=== PATIENT | female | born 1970 | race Caucasian/White ===

== ENCOUNTER 2020-09-16 12:27 | Inpatient (IN) | payer BC, OTHER, SELFPAY ==
[~2020-09-16] VITALS: Ht 170.2 cm; Wt 109.3 kg
--- NOTE | 2020-09-16 13:38 | NUR ---
PIV PLACED, LABS DRAWN. ERMD HAS BEEN AT BEDSIDE FOR ASSESSMENT. AWAITING ORDERS. PT CONNECTED TO ALL MONITORING. CALL LIGHT IN REACH. SPOUSE AT BEDSIDE.
[2020-09-16] MEDS ORDERED: KETOROLAC 30 MG/1 ML ONE (13:45)
--- NOTE | 2020-09-16 13:59 | NUR ---
[employer] DRIVER PER APR. 2 SETS BLOOD CX COLLECTED. XRAY AT BEDSIDE.
[2020-09-16] MEDS ORDERED: SODIUM CHLORIDE 0.9% 1,000 ML IV ONE (14:00)
[2020-09-16] MEDS ORDERED: SODIUM CHLORIDE FLUSH 10ML SYR IVF ONE (14:00)
[2020-09-16] MEDS ORDERED: KETOROLAC 30 MG/1 ML IVPush ONE (14:00)
[2020-09-16] MEDS ORDERED: SODIUM CHLORIDE 0.9% 1,000ML IVBOLUS ONE (14:00)
[2020-09-16 14:05] LABS: BASOPHILS % (AUTO) 0 % (0-1); EOSINOPHILS % (AUTO) 0 % (1-7); LYMPHOCYTES % (AUTO) 14 % (22-44); MEAN CORPUSCULAR HEMOGLOBIN 31.1 pg (27.0-34.8); MEAN PLATELET VOLUME 7.3 fL (7.4-10.4); MONOCYTES % (AUTO) 5 % (2-9); NEUTROPHILS % (AUTO) 81 % (42-75); PLATELET COUNT 178 x10^3/uL (130-400); RED BLOOD COUNT 4.49 x10^6/uL (3.82-5.3); RED CELL DISTRIBUTION WIDTH 12.2 % (9.6-15.2)
[2020-09-16 14:17] LABS: ALANINE AMINOTRANSFERASE 49 U/L (12-78); ALBUMIN 2.7 g/dL (3.4-5.0); ANION GAP 9 mmol/L (5-15); CALCIUM 8.4 mg/dL (8.5-10.1); CHLORIDE 102 mmol/L (98-107); CREATININE 1.12 mg/dL (0.55-1.02)
[2020-09-16 14:21] LABS: ALKALINE PHOSPHATASE 113 U/L (45-117); BILIRUBIN,TOTAL 0.5 mg/dL (0.2-1.0); TOTAL PROTEIN 7.2 g/dL (6.4-8.2); TROPONIN I < 0.015 ng/mL (0.000-0.045)
--- NOTE | 2020-09-16 15:28 | NUR ---
PT GOING TO CT
--- NOTE | 2020-09-16 15:28 | NUR ---
PT OXYGEN LEVEL DROPPED BACK TO 88% RA. PT PLACED BACK ON OXYGEN.
[2020-09-16] MEDS ORDERED: OMNIPAQUE 350 MG/ML, 75ML BOTTLE ONE (15:41)
--- NOTE | 2020-09-16 16:21 | NUR ---
PT OXYGEN LEVEL 83% RA AFTER AMBULATING TO RESTROOM AND BACK. PT PLACED BACK ON OXYGEN 2L VIA NC, WITH POSITIVE RESULTS.
--- NOTE | 2020-09-16 16:30 | NUR ---
REPORT GIVEN TO LO MARTINEZ. TRANSFER OF CARE.
--- NOTE | 2020-09-16 16:38 | NUR ---
PT RESTING ON GURNEY. MATTIEN. VSS ON 2L NC
[2020-09-16] MEDS ORDERED: morphine SULFATE 10 MG/ML, 1ML IVPush PRN (17:30)
[2020-09-16] MEDS ORDERED: DIPHENHYDRAMINE 25 MG CAPSULE PO PRN (17:30)
[2020-09-16] MEDS ORDERED: SODIUM CHLORIDE FLUSH 10ML SYR IVF PRN (17:30)
[2020-09-16] MEDS ORDERED: GUAIFENESIN/DM 200-20MG, 10ML UDC PO PRN (17:30)
[2020-09-16] MEDS ORDERED: ONDANSETRON ODT 4 MG PO PRN (17:30)
[2020-09-16] MEDS ORDERED: ONDANSETRON 2MG/ML, 2ML IVPush PRN (17:30)
[2020-09-16] MEDS ORDERED: ENALAPRILAT 1.25 MG/ML, 2ML IVPush PRN (17:30)
[2020-09-16] MEDS ORDERED: THIAMINE 100MG TABLET PO ONE (17:30)
[2020-09-16] MEDS ORDERED: HYDROcodone/APAP 5/325 TABLET PO PRN (17:30)
--- NOTE | 2020-09-16 18:26 | NUR ---
PT RESTING ON GURNEY. NADN. B[facility]LEY.
--- NOTE | 2020-09-16 18:45 | NUR ---
REPORT GIVEN TO MICHELLE COY. ALL QUESTIONS ANSWERED. AWAITING PT TRANSPORT.
[2020-09-16] MEDS ORDERED: THIAMINE 100MG TABLET ONE (18:49)
[2020-09-16] MEDS ORDERED: ENOXAPARIN 40 MG/0.4 ML ONE (18:49)
[2020-09-16] MEDS: CEFTRIAXONE 1,000 MG in DEXTROSE 5% 50 ML IVPB SCH (18:51)
[2020-09-16] MEDS: ENOXAPARIN 40 MG/0.4 ML SQ SCH (18:52)
--- NOTE | 2020-09-16 19:18 | NUR ---
PT RESTING ON GURNEY. NADN. B[facility]LEY.
[2020-09-16 19:40] VITALS: BP 133/83
[2020-09-16] MEDS: FAMOTIDINE 20 MG TABLET PO SCH (21:01)
[2020-09-16] MEDS: AZITHROMYCIN 500 MG in SODIUM CHLORIDE 0.9% 250 ML IV SCH (21:01)
[2020-09-16] MEDS: ACETAMINOPHEN 325 MG TABLET PO PRN (23:32)
[2020-09-17 00:03] VITALS: BP 113/73
[2020-09-17 00:08] LABS: CLOSTRIDIUM DIFFICILE ANTIGEN NEGATIVE; CLOSTRIDIUM DIFFICILE TOXIN NEGATIVE (Negative)
[2020-09-17 05:48] LABS: BASOPHILS % (AUTO) 0 % (0-1); EOSINOPHILS % (AUTO) 0 % (1-7); LYMPHOCYTES % (AUTO) 27 % (22-44); MEAN CORPUSCULAR HEMOGLOBIN 31.3 pg (27.0-34.8); MEAN CORPUSCULAR HGB CONC 35.2 g/dL (32.4-35.8); MONOCYTES % (AUTO) 6 % (2-9); NEUTROPHILS % (AUTO) 67 % (42-75); PLATELET COUNT 178 x10^3/uL (130-400); RED BLOOD COUNT 3.91 x10^6/uL (3.82-5.3); RED CELL DISTRIBUTION WIDTH 11.9 % (9.6-15.2)
[2020-09-17 05:56] LABS: ALBUMIN 2.2 g/dL (3.4-5.0); ANION GAP 7 mmol/L (5-15); CHLORIDE 106 mmol/L (98-107)
[2020-09-17 05:59] LABS: ALANINE AMINOTRANSFERASE 47 U/L (12-78); ALKALINE PHOSPHATASE 108 U/L (45-117); BILIRUBIN,TOTAL 0.5 mg/dL (0.2-1.0); CREATININE 0.68 mg/dL (0.55-1.02); TOTAL PROTEIN 6.3 g/dL (6.4-8.2)
[2020-09-17 07:18] VITALS: BP 90/59
[2020-09-17] MEDS: ASCORBIC ACID 500 MG TABLET PO SCH ×2 (08:41→16:29)
[2020-09-17] MEDS: ZINC SULFATE 220 MG CAPSULE PO SCH (08:42)
[2020-09-17] MEDS: FAMOTIDINE 20 MG TABLET PO SCH ×2 (08:42→20:53)
[2020-09-17] MEDS: DEXAMETHASONE 4 MG/ML, 1ML IVPush SCH (08:42)
[2020-09-17] MEDS: CHOLECALCIFEROL 1,000 UNIT TABLET PO SCH (08:42)
[2020-09-17 12:47] VITALS: BP 125/84
[2020-09-17] MEDS ORDERED: REMDESIVIR 200 MG in SODIUM CHLORIDE 0.9% 250 ML IVPB ONE (15:30)
[2020-09-17] MEDS: ENOXAPARIN 40 MG/0.4 ML SQ SCH (18:44)
[2020-09-17] MEDS: CEFTRIAXONE 1,000 MG in DEXTROSE 5% 50 ML IVPB SCH (18:44)
[2020-09-17 19:53] VITALS: BP 119/69
[2020-09-17] MEDS: AZITHROMYCIN 500 MG in SODIUM CHLORIDE 0.9% 250 ML IV SCH (20:53)
[2020-09-17] MEDS: ACETAMINOPHEN 325 MG TABLET PO PRN (21:05)
[2020-09-17] MEDS: CYCLOBENZAPRINE 10 MG TABLET PO PRN (21:05)
[2020-09-18 03:10] VITALS: BP 135/80
[2020-09-18 06:46] LABS: ALANINE AMINOTRANSFERASE 51 U/L (12-78); ALBUMIN 2.1 g/dL (3.4-5.0); ANION GAP 5 mmol/L (5-15); CALCIUM 8.3 mg/dL (8.5-10.1); CHLORIDE 108 mmol/L (98-107)
[2020-09-18 06:48] LABS: ALKALINE PHOSPHATASE 108 U/L (45-117); BILIRUBIN,TOTAL 0.3 mg/dL (0.2-1.0); TOTAL PROTEIN 6.3 g/dL (6.4-8.2)
[2020-09-18 09:07] VITALS: BP 110/69
[2020-09-18] MEDS: CHOLECALCIFEROL 1,000 UNIT TABLET PO SCH (09:24)
[2020-09-18] MEDS: FAMOTIDINE 20 MG TABLET PO SCH ×2 (09:24→21:17)
[2020-09-18] MEDS: ASCORBIC ACID 500 MG TABLET PO SCH ×2 (09:24→19:42)
[2020-09-18] MEDS: ZINC SULFATE 220 MG CAPSULE PO SCH (09:24)
[2020-09-18] MEDS: DEXAMETHASONE 4 MG/ML, 1ML IVPush SCH (09:25)
[2020-09-18 12:45] VITALS: BP 118/75
[2020-09-18] MEDS ORDERED: REMDESIVIR 100 MG in SODIUM CHLORIDE 0.9% 250 ML IVPB SCH (15:30)
[2020-09-18] MEDS: ENOXAPARIN 40 MG/0.4 ML SQ SCH (19:42)
[2020-09-18] MEDS: CEFTRIAXONE 1,000 MG in DEXTROSE 5% 50 ML IVPB SCH (19:42)
[2020-09-18] MEDS: AZITHROMYCIN 500 MG in SODIUM CHLORIDE 0.9% 250 ML IV SCH (21:16)
[2020-09-18] MEDS: CYCLOBENZAPRINE 10 MG TABLET PO PRN (21:17)
[2020-09-18] MEDS: ACETAMINOPHEN 325 MG TABLET PO PRN (21:17)
[2020-09-18 21:19] VITALS: BP 156/92
[2020-09-19 02:32] VITALS: BP 136/88
[2020-09-19 05:43] LABS: ALBUMIN 2.2 g/dL (3.4-5.0); ANION GAP 5 mmol/L (5-15); CALCIUM 8.7 mg/dL (8.5-10.1); CHLORIDE 110 mmol/L (98-107)
[2020-09-19 05:47] LABS: ALANINE AMINOTRANSFERASE 61 U/L (12-78); ALKALINE PHOSPHATASE 103 U/L (45-117); BILIRUBIN,TOTAL 0.3 mg/dL (0.2-1.0)
[2020-09-19 07:43] VITALS: BP 152/84
[2020-09-19] MEDS ORDERED: DEXA4TAB66 PO ×2 (08:07→09:07)
[2020-09-19] MEDS ORDERED: AZIT250T PO ×2 (08:07→09:07)
[2020-09-19] MEDS: CHOLECALCIFEROL 1,000 UNIT TABLET PO SCH (08:20)
[2020-09-19] MEDS: FAMOTIDINE 20 MG TABLET PO SCH (08:20)
[2020-09-19] MEDS: ZINC SULFATE 220 MG CAPSULE PO SCH (08:20)
[2020-09-19] MEDS: ASCORBIC ACID 500 MG TABLET PO SCH (08:20)
[2020-09-19] MEDS: DEXAMETHASONE 4 MG/ML, 1ML IVPush SCH (08:20)
[2020-09-19 13:42] VITALS: BP 133/78
== END 2020-09-19 14:15 | disposition home or self-care (01) | DRG 177 ==
LOC: ED 16:07 → SUATTDRO 17:14 → EDIP 18:12 → 4NE 19:30 → 4EST 09-17 09:49 → 4NE 09-17 09:49
PROVIDERS: ADMIT Hospitalist; ATTEND Hospitalist
PROC: XW033E5 Introduction of Remdesivir Anti-infective into Peripheral Vein, Percutaneous Approach, New Technology Group 5 (ICD-10-PCS; principal; 2020-09-17)
DX: U07.1 COVID-19 (principal); J12.82 Pneumonia due to coronavirus disease 2019; J96.01 Acute respiratory failure with hypoxia; N17.0 Acute kidney failure with tubular necrosis; E87.1 Hypo-osmolality and hyponatremia; E87.6 Hypokalemia
CPT/HCPCS: 36415; 71045; 71275; 80053; 83605; 83615; 84484; 85025; 85379; 87040; 87324; 93005; 96360; 96361; G0378; J0456; J0696; J1100; J1650; J1885; Q9967; U0005; J7030; J7050; U0003